=== PATIENT | male | born 1995 | race Caucasian/White ===

== ENCOUNTER 2018-04-08 20:12 | Emergency (ER) | payer OTHER ==
[2018-04-08] MEDS: ACETAMINOPHEN 325 MG TAB PO (23:50)
== END 2018-04-08 23:53 | disposition home or self-care (01) ==
LOC: M ED 20:12
DX: S06.0X0A Concussion without loss of consciousness, initial encounter (principal); W50.0XXA Accidental hit or strike by another person, initial encounter; Y92.84 Military training ground as the place of occurrence of the external cause; Y93.89 Activity, other specified; Y99.9 Unspecified external cause status; Z91.89 Other specified personal risk factors, not elsewhere classified
CPT/HCPCS: 70450

== ENCOUNTER 2018-09-01 18:46 | Emergency (ER) | payer OTHER ==
[~2018-09-01] VITALS: Ht 180.3 cm; Wt 104.5 kg
[~2018-09-01 18:46] MED LIST: ZOFR4TAB14 PO
[2018-09-01] MEDS ORDERED: DULO-34 PO (18:52)
[2018-09-01] MEDS ORDERED: diphenhydrAMINE INJ 50MG/ML VIAL (J1200) IV STA (20:49)
[2018-09-01] MEDS ORDERED: KETOROLAC 30 MG/ML VIAL (J1885) IV ONE (21:00)
[2018-09-01] MEDS ORDERED: METOCLOPRAMIDE INJ 10MG/2ML VIAL (J2765) IV ONE (21:00)
[2018-09-01] MEDS ORDERED: NS 1,000 ML IV ONE (21:00)
[2018-09-01] MEDS ORDERED: dexameTHASONE 20 MG/5 ML VIAL (J1100) IV ONE (21:00)
--- NOTE | 2018-09-01 21:36 | REPVR ---
EXAM: CT Head Without Contrast EXAM DATE/TIME: 09/01/2018 9:06 PM CLINICAL HISTORY: 23 years old, male; Pain; Headache; Additional info: Smell changes, worsening MALONE, sensation changes TECHNIQUE: Axial computed tomography images of the head/brain without contrast. All CT scans at this facility use at least one of these dose optimization techniques: automated exposure control; mA and/or kV adjustment per patient size (includes targeted exams where dose is matched to clinical indication); or iterative reconstruction. COMPARISON: CT Head without contrast 04/08/2018 9:10 PM FINDINGS: Brain: Normal. No hemorrhage. No significant white matter disease. No edema. Ventricles: Normal. No ventriculomegaly. Bones/joints: Unremarkable. No acute fracture. Sinuses: Visualized sinuses are unremarkable. No acute sinusitis. Mastoid air cells: Visualized mastoid air cells are unremarkable. No mastoid effusion. Soft tissues: Unremarkable. IMPRESSION: Negative noncontrast head CT without change from 04/08/2018. Electronically signed by: Dalton Solorzano On 09/01/2018 21:36:04 PM
[2018-09-01 21:45] LABS: BASO % 0.4 % (0.0-1.0); EOS # 0.3 10^3/uL (0.0-0.50); EOS % 3.3 % (0.0-3.0); HEMATOCRIT 41.4 % (42.0-52.0); HEMOGLOBIN 14.2 g/dl (13.5-17.5); LYMPH # 2.9 10^3/uL (1.5-6.5); LYMPH % 36.5 % (24.0-44.0); MEAN CORPUSCULAR HEMOGLOBIN 29.5 pg (27.0-33.0); MEAN CORPUSCULAR HGB CONC 34.3 g/dl (32.0-36.5); MEAN CORPUSCULAR VOLUME 85.9 fl (80.0-96.0); MONO # 0.5 10^3/uL (0.0-0.8); MONO % 5.8 % (0.0-5.0); NEUTROPHILS # 4.2 10^3/uL (1.8-7.7); NEUTROPHILS % 53.7 % (36.0-66.0); PLATELET COUNT, AUTOMATED 290 10^3/uL (150-450); RED BLOOD COUNT 4.82 10^6/uL (4.30-6.10); WHITE BLOOD COUNT 7.8 10^3/uL (4.0-10.0)
[2018-09-01 22:28] LABS: BLOOD UREA NITROGEN 14 MG/DL (7-18); CARBON DIOXIDE LEVEL 26 MEQ/L (21-32); CHLORIDE LEVEL 106 MEQ/L (98-107); CREATININE FOR GFR 0.93 MG/DL (0.70-1.30); GLOMERULAR FILTRATION RATE > 60.0 (>60); GLUCOSE, FASTING 91 MG/DL (70-100); POTASSIUM SERUM 4.1 MEQ/L (3.5-5.1); SODIUM LEVEL 140 MEQ/L (136-145)
[2018-09-02] MEDS ORDERED: DEPA500T2 PO (02:30)
--- NOTE | 2018-09-02 02:40 | REPVR ---
EXAM: MR Head Without Contrast EXAM DATE/TIME: 09/02/2018 1:49 AM CLINICAL HISTORY: 23 years old, male; PT states headache where he could "feel his pulse in his head," worsened to the point that he felt he was losing vision with each pulse." Additional info: MALONE, vision changes, decreased sensation. TECHNIQUE: MR of the head without contrast. COMPARISON: CT Head without contrast 09/01/2018 8:[address] Head without contrast 04/08/2018 9:10:25 PM FINDINGS: Brain: There is no acute infarct, intracranial hemorrhage, mass effect, or herniation. The cortical gyration pattern, basal ganglia, thalami, and cerebellum are normal in appearance. Brainstem: Normal. Midline shift: There is no midline shift. Ventricles: Normal. No ventriculomegaly. Bones/joints: Unremarkable. Soft tissues: Unremarkable. Sinuses: Normal as visualized. No acute sinusitis. Mastoid air cells: Normal as visualized. No mastoid effusion. Orbits: Unremarkable. IMPRESSION: Normal MRI brain without contrast. Electronically signed by: Joseph Al On 09/02/2018 02:40:14 AM
[2018-09-02 02:50] VITALS: BP 129/59
== END 2018-09-02 03:42 | disposition home or self-care (01) ==
LOC: M ED 18:46
DX: G43.B0 Ophthalmoplegic migraine, not intractable (principal); Z87.820 Personal history of traumatic brain injury
CPT/HCPCS: 36415; 70450; 70551; 80048; 85025; 96361; 96374; 96375; 99284; J1100; J1200; J1885; J2765

== ENCOUNTER 2018-09-15 20:57 | Emergency (ER) | payer OTHER ==
[~2018-09-15] VITALS: Ht 180.3 cm; Wt 104.5 kg
[2018-09-15 20:57] VITALS: BP 133/99
[~2018-09-15 20:57] MED LIST changes: +DEPA500T2 PO; +DULO-34 PO
--- NOTE | 2018-09-15 23:33 | REPVR ---
EXAM: CT Maxillofacial Without Contrast EXAM DATE/TIME: 09/15/2018 10:54 PM CLINICAL HISTORY: 23 years old, male; Pain; Nose pain; Additional info: Post tr eval TECHNIQUE: Axial computed tomography images of the face without intravenous contrast. All CT scans at this facility use at least one of these dose optimization techniques: automated exposure control; mA and/or kV adjustment per patient size (includes targeted exams where dose is matched to clinical indication); or iterative reconstruction. Coronal and sagittal reformatted images were created and reviewed. Technologist notes: Facility exam id and description: CT. Maxwo CT maxilofacial w/out contrast COMPARISON: No relevant prior studies available. FINDINGS: Orbits: No acute intraorbital abnormality. Globes are unremarkable. Sinuses: Normal. No air-fluid levels. Bones/joints: No acute fracture. Soft tissues: No significant facial soft tissue swelling. IMPRESSION: Negative CT facial bones. No fractures are identified. Electronically signed by: Dalton Solorzano On 09/15/2018 23:33:03 PM
== END 2018-09-15 23:42 | disposition home or self-care (01) ==
LOC: M ED 20:57
DX: J34.89 Other specified disorders of nose and nasal sinuses (principal); Z87.820 Personal history of traumatic brain injury; R51 Headache; Z91.048 Other nonmedicinal substance allergy status; Z79.899 Other long term (current) drug therapy

== ENCOUNTER 2019-04-16 13:56 | Emergency (ER) | payer OTHER ==
[~2019-04-16] VITALS: Ht 180.3 cm; Wt 117.3 kg
[2019-04-16] MEDS ORDERED: diphenhydrAMINE INJ 50MG/ML VIAL (J1200) IV ONE (15:30)
[2019-04-16] MEDS ORDERED: NS 1,000 ML IV ONE (15:30)
[2019-04-16] MEDS ORDERED: KETOROLAC 30 MG/ML VIAL (J1885) IM ONE (15:30)
[2019-04-16] MEDS ORDERED: METOCLOPRAMIDE INJ 10MG/2ML VIAL (J2765) IV ONE (15:30)
[2019-04-16] MEDS ORDERED: KETOROLAC 30 MG/ML VIAL (J1885) IV ONE (16:00)
[2019-04-16] MEDS ORDERED: MAG SULF 1GM/100ML (MAG RUN) 1 GM in IV 1 EA IV ONE (16:45)
[2019-04-16] MEDS ORDERED: ACETAMINOPHEN 325 MG TAB PO ONE (16:45)
[2019-04-16 18:08] VITALS: BP 128/69
== END 2019-04-16 18:10 | disposition home or self-care (01) ==
LOC: M ED 13:56
DX: R51 Headache (principal); Z87.820 Personal history of traumatic brain injury; Z79.899 Other long term (current) drug therapy; Z91.048 Other nonmedicinal substance allergy status
CPT/HCPCS: 96361; 96365; 96375; 99284; J1200; J1885; J2765; J3475